=== PATIENT | male | born 1945 | race African-American/Black ===

== ENCOUNTER 2017-02-08 21:20 | Inpatient (IN) ==
[2017-02-08] MEDS ORDERED: SODIUM CHLORIDE 0.9% 1,700 ML IV ONE (21:37)
[2017-02-08 22:01] LABS: Basophils % 0.1 % (0.0-0.8); Hematocrit 31.3 VOL% (42.0-52.0); Hemoglobin 9.7 GM/DL (14.0-18.0); Immature Granulocytes % 0.5 %; Immature Granulocytes Absolute 0.06 #; Lymphocytes # 0.5 10*3/uL (1.4-4.0); Mean Corpuscular Hemoglobin 24 PG (27-34); Mean Corpuscular Volume 78.3 FL (87-102); Mean Platelet Volume 9.9 FL (9.6-12.0); Monocytes # 0.7 10*3/uL (0.11-0.8); Monocytes % 5.5 % (1.7-12.7); Neutrophils # 10.6 10*3/uL (1.4-7.4); Neutrophils % 89.9 % (38.7-73.9); Platelet Count 222 T/CUMM (130-400); Red Cell Distribution Width 17.5 % (9.3-17.3); White Blood Count 11.8 T/CUMM (4-12)
--- NOTE | 2017-02-08 22:06 | Emergency Department Note ---
Arrival - Arrival Chief Complaint: Fever Stated Complaint: Fever ED Nursing Triage Note: Patient presents from home via EMS with a complaint of fever with altered mental status. Per report patient was eating approximately 2 days ago and got choked at home. Since then patient has been with today with fever and altered mental stauts. Mode of Arrival: Stretcher Time Seen by Provider: 02/08/17 21:36 - History of Present Illness HPI Narrative: This is a 71-year-old male of descent with a history of dementia who lives at home and presents with decreasing mental status fever and cough. His says that his neck has been painful and stiff throughout the day. Allergies/Adverse Reactions: Allergies Allergy/AdvReac Type Severity Reaction Status Date / Time No Known Allergies Allergy Unverified 02/08/17 21:31 Home Medications: Home Medications Medication Instructions Recorded Confirmed Type Bimatoprost 0.01% Oph Soln 1 drop BOTH EYES DAILY 02/08/17 02/08/17 History [Lumigan] Dorzolamide HCl [Dorzolamide 2% 1 drop BOTH EYES BID 02/08/17 02/08/17 History Oph Soln] Losartan [Cozaar] 50 mg PO DAILY 02/08/17 02/08/17 History Review of System - Review of System Constitutional: Present: fever. Absent: night sweats, weakness Eyes: Absent: pain, redness Head/Ears/Nose/Throat: Absent: epistaxis, nasal drainage Respiratory: Absent: respiratory distress, wheezing Cardiovascular: Absent: dyspnea on exertion, orthopnea Gastrointestinal: Absent: diarrhea, constipation Genitourinary male: Absent: hematuria, discharge Musculoskeletal: Absent: joint swelling, lower back pain Skin: Absent: change in color, change in hair/nails Neurological: Absent: numbness, paresthesias Psychiatric: Absent: anxiety, depression Endocrine: Absent: heat intolerance, polydipsia, polyuria Hematological/Lymphatic: Absent: easy bruising, lymphadenopathy Allergic/Immunologic: Absent: urticaria, itchy eyes Medical,Surgical,& Family Hx - Medical History Cardio: History of: Hypertension - Social History Smoking Status: Never smoker Frequency of Alcohol Use: None Type of Drug Use: None Exam Vital Signs: Vital Signs Temperature 99.8 F H 02/08/17 21:36 Pulse Rate 111 H 02/08/17 21:36 Respiratory Rate 22 02/08/17 21:37 Blood Pressure 204/116 02/08/17 21:36 O2 Sat by Pulse Oximetry 97 02/08/17 21:21 - General General appearance: other (The patient is sleepy and difficult to awake. His neck is markedly stiff and tender.) - Head Head exam: Present: atraumatic, normocephalic - Eye Eye exam: Present: PERRL, EOMI - ENT ENT exam: Present: normal exam, normal oropharynx - Neck Neck exam: Present: meningismus - Chest Chest inspection: Present: normal inspection, symmetric chest wall rise - Respiratory Respiratory exam: Present: normal lung sounds bilaterally - Cardiovascular Cardiovascular exam: Present: tachycardia - Abdominal Exam Abdominal exam: Present: soft, normal bowel sounds - Extremities Exam Extremities exam: Present: normal inspection, full ROM - Back Exam Back exam: Present: normal inspection, full ROM - Neurological Exam Neurological exam: Present: other (The patient is sleepy but responds to pain) - Psychiatric Psychiatric exam: Present: normal affect, normal mood - Skin Skin exam: Present: warm, dry Results - Labs CBC & BMP: 02/08/17 21:43
[2017-02-08 22:20] LABS: Albumin 3.2 G/DL (3.4-5.0); Bilirubin,Total 0.8 MG/DL (0.2-1.0); Calcium 8.9 MG/DL (8.5-10.1); Lactic Acid 1.5 MMOL/L (0.4-2.0); Osmolality,Calculated 286.1 MOS/KG (273-304); Potassium 3.3 MMOL/L (3.5-5.1); Total Protein 8.4 G/DL (6.4-8.3)
[2017-02-08] MEDS ORDERED: PIPERACILLIN/TAZOBACTAM 4,500 MG VIAL IV ONE (22:30)
[2017-02-08] MEDS ORDERED: PIPERACILLIN/TAZOBACTAM 3,375 MG VIAL IV ONE (22:30)
[2017-02-08] MEDS ORDERED: VANCOMYCIN INJ 1,000 MG in SODIUM CHLORIDE 0.9% 250 ML IV SCH (22:30)
[2017-02-08] MEDS ORDERED: SODIUM CHLORIDE 0.9% 100 ML IV ONE (22:31)
[2017-02-08 22:54] LABS: Hypochromasia 1+; Lymphocytes 4 % (20-55); Microcytosis 1+; Platelet Estimate Normal; Polychromasia Few; Segmented Neutrophils 91 % (50-85); Total Cells Counted 100
[2017-02-08] MEDS: PIPERACILLIN/TAZOBACTAM 3,375 MG in SODIUM CHLORIDE 0.9% 100 ML IV SCH (23:05)
[2017-02-08 23:44] LABS: Appearance,CSF Clear; Red Blood Cell,CSF < 1 C/CUMM; White Blood Cell,CSF < 1 C/CUMM
[2017-02-09] MEDS ORDERED: LABETALOL 20 MG/4 ML SYRINGE IV ONE (01:39)
[2017-02-09] MEDS ORDERED: LABETALOL 20 MG/4 ML SYRINGE IV STA (01:43)
--- NOTE | 2017-02-09 02:01 | Hospitalist History & Physical ---
Assessment and Plan (1) Pneumonia Status: Acute Current Visit: Yes (2) Aortic aneurysm Status: Acute Current Visit: Yes (3) Advanced dementia Status: Acute Assessment and plan: Our plan for this patient will be admitting him to our service. I do think that he had aspiration event. I would like to have his swallowing evaluated. Think he needs some IV fluids and some medications to control his blood pressure. We will use IV medications at this point. Can continue his eyedrops. Will await recommendations on his diet. Need to follow-up on the final report some of the red scans. He will need to have his aortic aneurysm monitor closely. Reevaluate patient in the morning. Current Visit: Yes History of Present Illness Chief complaint: Warm to touch History of present illness: Mr. Whiteside is a 71 year old male with past medical history significant for PTSD, hypertension, glaucoma, hypertension, prostate cancer and advanced dementia who was brought up to the hospital today for decreased mental status and fever. Patient is on hospice. He has really advanced dementia according to his . She feeds him and assist with all of his daily needs. He was eating food yesterday and was pocketing it in his mouth. He did have a coughing spell consistent with possible aspiration. Later she noticed that he is warm to touch. So she brought him up here for further evaluation. Secondary to him having a stiff neck he got an LP by the ER physician. The results of that are negative. He was scanned chest abdomen and pelvis along with his head. The results of those scans displayed some pneumonia. His scans also displayed a inferior inferior renal aortic aneurysm that has grown. According to the V rad scan. Discussed CODE STATUS with the patient's and although he is on hospice she does want him to be a full code. Home Medications Medication Instructions Recorded Confirmed Type Bimatoprost 0.01% Oph Soln 1 drop BOTH EYES DAILY 02/08/17 02/08/17 History [Lumigan] Dorzolamide HCl [Dorzolamide 2% 1 drop BOTH EYES BID 02/08/17 02/08/17 History Oph Soln] Losartan [Cozaar] 50 mg PO DAILY 02/08/17 02/08/17 History Allergies Allergy/AdvReac Type Severity Reaction Status Date / Time No Known Allergies Allergy Unverified 02/08/17 21:31 Medical,Surgical,& Family Hx - Medical History Cardio: History of: Hypertension Neurology: History of: Dementia Other: History of: Miscellaneous Medical Problems (Prostate cancer) - Surgical History Reproductive Surgeries: Surgical HX of;: Prostate Surgery - Family History Family History: Reports;: Family Diabetes, Family Heart Disease, Family Psychiatric Problems - Social History Smoking Status: Former smoker Frequency of Alcohol Use: None Type of Drug Use: None ROS unobtainable: due to mental status Exam - Constitutional Vitals: Period Temp Pulse Resp BP Sys/Goel Pulse Ox Last 24 Hr 99.0 F-100.0 F 87-120 16-22 167-204/75-116 97-99 General appearance: under weight - Head Head exam: Present: normal inspection - Eye Pupils: Present: unequal (Patient has history of glaucoma) - ENT ENT exam: Present: normal exam - Neck Neck exam: Present: tenderness, other (Patient does have neck stiffness) - Respiratory Respiratory exam: Present: clear to auscultation bilaterally - Cardiovascular Cardiovascular exam: Present: regular rate and rhythm - GI/Abdominal GI/Abdominal exam: Present: normal bowel sounds - Extremities Exam Extremities exam: Present: normal inspection - Back Exam Back exam: Present: normal inspection - Neurological Exam Neurological exam: Present: alert, oriented X3 - Psychiatric Psychiatric exam: Present: normal affect, normal mood - Skin Skin exam: Present: normal color Results - Labs CBC & BMP: 02/08/17 21:43 02/08/17 21:43
[2017-02-09] MEDS ORDERED: ONDANSETRON 4 MG/2 ML VIAL IV PRN (02:07)
[2017-02-09] MEDS: SODIUM CHLOR 0.45% KCL 20 MEQ 20 MEQ/1,000 ML BAG IV SCH (03:24)
[2017-02-09] MEDS: LEVOFLOXACIN INJ 750 MG in PREMIX 1 EACH IV SCH (03:25)
[2017-02-09] MEDS: ENOXAPARIN 40 MG/0.4 ML SYRINGE SUBCUT SCH (03:25)
[2017-02-09] MEDS: PIPERACILLIN/TAZOBACTAM 3,375 MG in SODIUM CHLORIDE 0.9% 100 ML IV SCH ×3 (06:14→21:16)
--- NOTE | 2017-02-09 07:47 | CT Report ---
CT chest abdomen pelvis w con Indication: Sepsis. CT CHEST, ABDOMEN AND PELVIS WITH CONTRAST DLP: 681 mGy*cm. One or more of the following dose reduction techniques was used: Automated exposure control, adjustment of the mA and/or kV according the patient size, or use of iterative reconstruction techniques. Comparison: 06/30/2014 Technique: Axial CT images of the chest, abdomen and pelvis were obtained following the intravenous administration of Omnipaque 350, 100 cc. Oral contrast was not administered. Chest: Normal heart size. Tortuous elongation of the thoracic aorta with diffuse calcified atheromatous disease noted. Descending thoracic aorta is fusiform dilated, 42 mm diameter. Small focus of saccular aneurysmal dilatation of the left lateral aortic arch present as well. No dissection flap identified. Severe pulmonary emphysema is present. 11 mm soft tissue nodule superior segment left lower lobe. Vague area of alveolar consolidation base of the lingula measuring 28 x 17 mm. Pleural spaces are generally clear. No focal bone lesions. No pathologically enlarged mediastinal, hilar or axillary lymph nodes. Abdomen: Liver, gallbladder, spleen, pancreas and adrenal glands are within normal limits, although streak artifact from arm positioning and breathing motion artifact is present. 50 mm hypodensity right kidney, likely a cyst. 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 No hydronephrosis or solid mass identified. No small bowel dilatation. Scattered air-fluid levels are noted throughout the abdomen and pelvis. 45 mm abdominal aortic aneurysm is present beginning well below the lowest renal artery, previously measured at 36 mm. OLVIN is patent. Iliac arteries are widely patent. Pelvis: Urinary bladder is contracted. Rectosigmoid colon is grossly unremarkable. No free fluid, free air or lymphadenopathy identified. Patient is somewhat osteopenic with degenerative changes lumbar spine. Impression: 1. Severe pulmonary emphysema. 11 mm pulmonary nodule superior segment left lower lobe. Alveolar consolidation such as pneumonia versus pulmonary nodule at the base of the lingula, 28 x 17 mm. 2. Fusiform dilatation of the ascending thoracic aorta, 42 mm diameter. Small focus of saccular aneurysmal change developing lateral left aortic arch. Enlarging abdominal aortic aneurysm, 45 mm diameter. 3. 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 No urinary obstruction or focal mass. Renal cysts. 4. Scattered air-fluid levels throughout the abdomen and pelvis small bowel, nonspecific. PROCEDURE INTERPRETED AT [facility] DEPARTMENT OF RADIOLOGY Final Report Signed by: Anthony Goldberg M.D.
--- NOTE | 2017-02-09 07:49 | CT Report ---
CT head/brain wo con Indication: Fever. Altered mental status. CT BRAIN WITHOUT CONTRAST DLP: 1089 mGy*cm. One or more of the following dose reduction techniques was used: Automated exposure control, adjustment of the mA and/or kV according the patient size, or use of iterative reconstruction techniques. Comparison: None. Date of admission: 02/08/2017. Technique: Axial noncontrast CT images of the brain were obtained. Findings: No acute hemorrhage, mass or mass effect. Significant hypodensity of the deep white matter of both convexities noted. Cortical orozco-white junction appears maintained and the structures of the basal ganglia are well-defined. Mild generalized atrophy. Mucosal thickening of the ethmoid and right maxillary sinus is noted. No bone lesions otherwise present. Impression: 1. Significant hypodensity of the deep white matter of both convexities, presumably chronic small vessel ischemic change. Mild generalized atrophy. No acute intracranial pathology. Consider MRI. 2. Ethmoid and right maxillary sinusitis. PROCEDURE INTERPRETED AT [facility] DEPARTMENT OF RADIOLOGY Final Report Signed by: Anthony Goldberg M.D.
[2017-02-09 08:14] LABS: Basophils % 0.2 % (0.0-0.8); Hematocrit 30.3 VOL% (42.0-52.0); Hemoglobin 9.4 GM/DL (14.0-18.0); Immature Granulocytes % 0.6 %; Immature Granulocytes Absolute 0.06 #; Lymphocytes # 0.7 10*3/uL (1.4-4.0); Lymphocytes % 6.1 % (21.2-54.2); Mean Corpuscular Hemoglobin 24 PG (27-34); Mean Corpuscular Volume 77.7 FL (87-102); Mean Platelet Volume 10.5 FL (9.6-12.0); Monocytes # 0.9 10*3/uL (0.11-0.8); Neutrophils # 9.2 10*3/uL (1.4-7.4); Neutrophils % 85.1 % (38.7-73.9); Platelet Count 178 T/CUMM (130-400); Red Cell Distribution Width 18.1 % (9.3-17.3); White Blood Count 10.7 T/CUMM (4-12)
[2017-02-09 08:39] LABS: Hypochromasia Slight; Microcytosis 1+
[2017-02-09 08:47] LABS: Calcium 8.2 MG/DL (8.5-10.1); Osmolality,Calculated 289.7 MOS/KG (273-304); Potassium 3.1 MMOL/L (3.5-5.1)
[2017-02-09] MEDS ORDERED: BIMATOPROST 0.01% OPH SOLN 2.5 ML BOTTLE BOTH EYES SCH (09:00)
[2017-02-09] MEDS: DORZOLAMIDE 2% OPH SOLN 10 ML BOTTLE BOTH EYES SCH ×2 (09:42→20:56)
[2017-02-09] MEDS ORDERED: PIPERACILLIN/TAZOBACTAM 3,375 MG in SODIUM CHLORIDE 0.9% 100 ML IV SCH (10:00)
[2017-02-09] MEDS ORDERED: POTASSIUM CHLORIDE INJ 40 MEQ in SODIUM CHLORIDE 0.9% 500 ML IV SCH (12:00)
[2017-02-09] MEDS: LABETALOL 20 MG/4 ML SYRINGE IV PRN (15:47)
[2017-02-10] MEDS: LABETALOL 20 MG/4 ML SYRINGE IV PRN ×4 (00:52→20:12)
[2017-02-10] MEDS: PIPERACILLIN/TAZOBACTAM 3,375 MG in SODIUM CHLORIDE 0.9% 100 ML IV SCH ×3 (04:31→20:27)
[2017-02-10 07:29] LABS: Basophils % 0.2 % (0.0-0.8); Eosinophils % 0.6 % (0.00-10.9); Hemoglobin 8.8 GM/DL (14.0-18.0); Immature Granulocytes % 0.5 %; Immature Granulocytes Absolute 0.03 #; Lymphocytes # 0.5 10*3/uL (1.4-4.0); Lymphocytes % 8.6 % (21.2-54.2); Mean Corpuscular HGB Conc 30.3 GM/DL (32-36); Mean Corpuscular Hemoglobin 24 PG (27-34); Mean Corpuscular Volume 78.4 FL (87-102); Mean Platelet Volume 10.2 FL (9.6-12.0); Monocytes # 0.7 10*3/uL (0.11-0.8); Monocytes % 10.5 % (1.7-12.7); Neutrophils % 79.6 % (38.7-73.9); Platelet Count 164 T/CUMM (130-400); Red Cell Distribution Width 17.9 % (9.3-17.3); White Blood Count 6.3 T/CUMM (4-12)
[2017-02-10 07:53] LABS: Calcium 8.8 MG/DL (8.5-10.1); Magnesium 2.1 MG/DL (1.8-2.4); Osmolality,Calculated 291.4 MOS/KG (273-304); Potassium 3.3 MMOL/L (3.5-5.1)
[2017-02-10] MEDS: LEVOFLOXACIN INJ 750 MG in PREMIX 1 EACH IV SCH (09:14)
[2017-02-10] MEDS: DORZOLAMIDE 2% OPH SOLN 10 ML BOTTLE BOTH EYES SCH ×2 (09:15→21:20)
[2017-02-10] MEDS: ENOXAPARIN 40 MG/0.4 ML SYRINGE SUBCUT SCH (09:21)
[2017-02-10] MEDS: LOSARTAN 50 MG TABLET PO SCH (10:07)
[2017-02-10] MEDS: SODIUM CHLOR 0.45% KCL 20 MEQ 20 MEQ/1,000 ML BAG IV SCH ×2 (11:36→12:17)
--- NOTE | 2017-02-10 15:07 | Hospitalist Progress Note ---
Assessment and Plan (1) Pneumonia Status: Acute Assessment and plan: Continue abx Current Visit: Yes (2) Advanced dementia Status: Acute Current Visit: Yes Hospitalist: Subjective Interval history: No acute events overnight. Patient denies pain. His reports a little po intake. Exam - Constitutional Vitals: Period Temp Pulse Resp BP Sys/Goel Pulse Ox Last 24 Hr 96.0 F-97.3 F 67-81 18-26 154-195/88-117 94-99 General appearance: under weight - Head Head exam: Present: normocephalic, atraumatic - Eye Eye exam: Present: EOMI Pupils: Present: TIMOTEO - ENT ENT exam: Present: normal exam - Neck Neck exam: Present: normal inspection - Respiratory Respiratory exam: Present: clear to auscultation bilaterally. Absent: wheezes - Cardiovascular Cardiovascular exam: Present: regular rate and rhythm - GI/Abdominal GI/Abdominal exam: Present: normal bowel sounds, soft. Absent: tenderness, rebound - Extremities Exam Extremities exam: Present: normal inspection - Back Exam Back exam: Present: normal inspection - Neurological Exam Neurological exam: Present: alert, oriented X3 - Psychiatric Psychiatric exam: Present: normal affect, normal mood - Skin Skin exam: Present: warm, intact Results - Labs CBC & BMP: 02/10/17 06:46 02/10/17 06:46
[2017-02-10] MEDS: DEXTROSE 5% NACL 0.45% 1,000 ML IV SCH (16:26)
[2017-02-10] MEDS: POTASSIUM CHLORIDE 20 MEQ TABLET PO PRN ×4 (17:01→22:59)
[2017-02-10] MEDS: BIMATOPROST 0.01% OPH SOLN 2.5 ML BOTTLE BOTH EYES SCH (21:20)
[2017-02-11] MEDS: LABETALOL 20 MG/4 ML SYRINGE IV PRN ×3 (01:34→06:01)
[2017-02-11] MEDS: PIPERACILLIN/TAZOBACTAM 3,375 MG in SODIUM CHLORIDE 0.9% 100 ML IV SCH ×2 (05:06→12:40)
[2017-02-11 06:22] LABS: Basophils % 0.2 % (0.0-0.8); Eosinophils # 0.1 10*3/uL (0.0-0.87); Eosinophils % 1.7 % (0.00-10.9); Hematocrit 31.3 VOL% (42.0-52.0); Hemoglobin 9.5 GM/DL (14.0-18.0); Immature Granulocytes % 0.2 %; Immature Granulocytes Absolute 0.01 #; Lymphocytes # 0.5 10*3/uL (1.4-4.0); Lymphocytes % 12.3 % (21.2-54.2); Mean Corpuscular HGB Conc 30.4 GM/DL (32-36); Mean Corpuscular Hemoglobin 24 PG (27-34); Mean Corpuscular Volume 79.2 FL (87-102); Mean Platelet Volume 9.7 FL (9.6-12.0); Monocytes # 0.5 10*3/uL (0.11-0.8); Monocytes % 11.6 % (1.7-12.7); Neutrophils # 3.1 10*3/uL (1.4-7.4); Platelet Count 166 T/CUMM (130-400); Red Blood Count 3.95 MC/CUMM (3.8-5.5); Red Cell Distribution Width 17.6 % (9.3-17.3); White Blood Count 4.2 T/CUMM (4-12)
[2017-02-11 06:43] LABS: Calcium 9.1 MG/DL (8.5-10.1); Magnesium 2.1 MG/DL (1.8-2.4); Osmolality,Calculated 282.8 MOS/KG (273-304); Potassium 3.6 MMOL/L (3.5-5.1)
[2017-02-11] MEDS: LOSARTAN 50 MG TABLET PO SCH (09:30)
[2017-02-11] MEDS: ENOXAPARIN 40 MG/0.4 ML SYRINGE SUBCUT SCH (09:32)
[2017-02-11] MEDS: DORZOLAMIDE 2% OPH SOLN 10 ML BOTTLE BOTH EYES SCH ×2 (09:34→22:04)
[2017-02-11] MEDS: LEVOFLOXACIN INJ 750 MG in PREMIX 1 EACH IV SCH (09:36)
--- NOTE | 2017-02-11 15:36 | Hospitalist Progress Note ---
Assessment and Plan (1) Pneumonia Status: Acute Assessment and plan: Continue abx, changed to augemtin Current Visit: Yes (2) Advanced dementia Status: Acute Current Visit: Yes Hospitalist: Subjective Interval history: No acute events overnight. Patient interacting some. His family member reports that he is still not eating much. Speech consult noted, diet changed to soft. Exam - Constitutional Vitals: Period Temp Pulse Resp BP Sys/Goel Pulse Ox Last 24 Hr 96.3 F-98.2 F 71-76 18-22 140-201/91-116 94-100 General appearance: under weight - Head Head exam: Present: normocephalic, atraumatic - Eye Eye exam: Present: EOMI Pupils: Present: TIMOTEO - ENT ENT exam: Present: normal exam - Neck Neck exam: Present: normal inspection - Respiratory Respiratory exam: Present: clear to auscultation bilaterally. Absent: rhonchi, wheezes - Cardiovascular Cardiovascular exam: Present: regular rate and rhythm - GI/Abdominal GI/Abdominal exam: Present: normal bowel sounds, soft. Absent: tenderness, rebound - Extremities Exam Extremities exam: Present: normal inspection - Back Exam Back exam: Present: normal inspection - Neurological Exam Neurological exam: Present: alert, oriented X3 - Psychiatric Psychiatric exam: Present: normal affect, normal mood - Skin Skin exam: Present: warm, intact Results - Labs CBC & BMP: 02/11/17 05:05 02/11/17 05:05
[2017-02-11] MEDS: POTASSIUM CHLORIDE 20 MEQ TABLET PO PRN ×2 (16:43→18:45)
[2017-02-11] MEDS: CARVEDILOL 6.25 MG TABLET PO SCH (22:02)
[2017-02-11] MEDS: AMOXICILLIN 875 MG TABLET PO SCH (22:02)
[2017-02-11] MEDS: BIMATOPROST 0.01% OPH SOLN 2.5 ML BOTTLE BOTH EYES SCH (22:05)
[2017-02-11] MEDS: DEXTROSE 5% NACL 0.45% 1,000 ML IV SCH (22:06)
[2017-02-12] MEDS: LABETALOL 20 MG/4 ML SYRINGE IV PRN ×3 (00:02→08:57)
[2017-02-12] MEDS: DEXTROSE 5% NACL 0.45% 1,000 ML IV SCH ×2 (08:25→11:46)
[2017-02-12] MEDS: ENOXAPARIN 40 MG/0.4 ML SYRINGE SUBCUT SCH (08:53)
[2017-02-12] MEDS ORDERED: hydrALAZINE 10 MG TABLET PO SCH (09:00)
[2017-02-12] MEDS: DORZOLAMIDE 2% OPH SOLN 10 ML BOTTLE BOTH EYES SCH ×2 (09:30→21:12)
--- NOTE | 2017-02-12 09:47 | CT Report ---
CT head/brain wo con Indication: Altered mental status. CT BRAIN WITHOUT CONTRAST DLP: 915 mGy*cm. One or more of the following dose reduction techniques was used: Automated exposure control, adjustment of the mA and/or kV according the patient size, or use of iterative reconstruction techniques. Comparison: 02/08/2017. Date of admission: 02/12/2017. Technique: Axial noncontrast CT images of the brain were obtained. Findings: No acute hemorrhage, mass or mass effect. Brain volume is normal. There is significant patchy periventricular white matter hypodensity present throughout both convexities, stable from the prior exam. Cortical orozco-white junction and structures of the basal ganglia are well-defined. No bone lesions are shown. Internal auditory canals are symmetric. Mucosal thickening of the ethmoid air cells is present and mild. The remainder of visualized sinuses and mastoid air cells are clear. Impression: No acute intracranial pathology. Changes consistent with significant but stable microvascular disease. Ethmoid sinus disease. PROCEDURE INTERPRETED AT [facility] DEPARTMENT OF RADIOLOGY Final Report Signed by: Anthony Goldberg M.D.
[2017-02-12] MEDS: CARVEDILOL 6.25 MG TABLET PO SCH (11:13)
[2017-02-12] MEDS: LOSARTAN 50 MG TABLET PO SCH (11:14)
[2017-02-12 11:15] LABS: Basophils % 0.1 % (0.0-0.8); Hematocrit 31.1 VOL% (42.0-52.0); Hemoglobin 9.7 GM/DL (14.0-18.0); Immature Granulocytes % 0.7 %; Immature Granulocytes Absolute 0.05 #; Lymphocytes # 0.5 10*3/uL (1.4-4.0); Lymphocytes % 6.9 % (21.2-54.2); Mean Corpuscular HGB Conc 31.2 GM/DL (32-36); Mean Corpuscular Hemoglobin 24 PG (27-34); Mean Corpuscular Volume 77.6 FL (87-102); Mean Platelet Volume 11.1 FL (9.6-12.0); Monocytes # 0.4 10*3/uL (0.11-0.8); Monocytes % 5.8 % (1.7-12.7); Neutrophils % 86.5 % (38.7-73.9); Platelet Count 129 T/CUMM (130-400); Red Blood Count 4.01 MC/CUMM (3.8-5.5); Red Cell Distribution Width 17.5 % (9.3-17.3); White Blood Count 6.9 T/CUMM (4-12)
[2017-02-12] MEDS: hydrALAZINE 20 MG/1 ML VIAL IV SCH ×2 (11:40→17:09)
[2017-02-12 11:41] LABS: Calcium 9.2 MG/DL (8.5-10.1); Osmolality,Calculated 272.7 MOS/KG (273-304); Potassium 3.7 MMOL/L (3.5-5.1)
[2017-02-12] MEDS: AMOXICILLIN 875 MG TABLET PO SCH (11:46)
--- NOTE | 2017-02-12 12:22 | Hospitalist Progress Note ---
Assessment and Plan (1) Pneumonia Status: Acute Assessment and plan: Possibly secondary to aspiration Will change back to zosyn, since not tolerating po Current Visit: Yes (2) Advanced dementia Status: Acute Current Visit: Yes (3) Hypertension Status: Acute Assessment and plan: Family member reports that at home systolic usually ~150s Will schedule IV hydralazine with IV labetalol prn Current Visit: Yes (4) Encephalopathy Status: Acute Assessment and plan: Patient with dementia at baseline But has a change in his mental status since yesterday, now completely unresponsive CT head without acute process Labs unremarkable Will order MRI brain Will also consult neurology Current Visit: Yes Hospitalist: Subjective Interval history: Overnight patient's family member notes upper extremity jerking movements. Following this episode she notes a change in his mental status. He is unresponsive this morning. He will usually respond to simple questions. He is no longer able to take his po medications. His blood pressure has been elevated , now not taking his po blood pressure medications. CT head this morning without acute process. Exam - Constitutional Vitals: Period Temp Pulse Resp BP Sys/Goel Pulse Ox Last 24 Hr 96.7 F-98.4 F 70-87 16-20 163-208/96-118 94-98 General appearance: under weight - Head Head exam: Present: normocephalic, atraumatic - Eye Eye exam: Present: EOMI Pupils: Present: TIMOTEO - ENT ENT exam: Present: normal exam - Neck Neck exam: Present: normal inspection - Respiratory Respiratory exam: Present: clear to auscultation bilaterally - Cardiovascular Cardiovascular exam: Present: regular rate and rhythm - GI/Abdominal GI/Abdominal exam: Present: normal bowel sounds, soft. Absent: tenderness, rebound - Extremities Exam Extremities exam: Present: normal inspection - Back Exam Back exam: Present: normal inspection - Neurological Exam Neurological exam: Present: other (unresponsive) - Psychiatric Psychiatric exam: Absent: agitated, anxious - Skin Skin exam: Present: warm, intact Results - Labs CBC & BMP: 02/12/17 10:43 02/12/17 10:43
--- NOTE | 2017-02-12 12:48 | Neurology Consult Note ---
History of Present Illness History of present illness: Mr. Whiteside is a 71 year old -English gentleman with past medical history significant for PTSD, hypertension, glaucoma, hypertension, prostate cancer and advanced dementia who was admitted to the hospital today for decreased mental status and fever. Patient is on hospice. He has really advanced dementia according to his and is pretty much bedridden. She feeds him and assist with all of his daily needs. He was eating food at home and was pocketing it in his mouth. He did have a coughing spell consistent with possible aspiration. Later she noticed that he is warm to touch. So she brought him up here for further evaluation. Secondary to him having a stiff neck he got an LP by the ER physician. The results of that are negative. He was scanned chest abdomen and pelvis along with his head. The results of those scans displayed some pneumonia. His scans also displayed a inferior inferior renal aortic aneurysm that has grown. Patient is on antibiotic. Yesterday he had an episode where he shook a little bit and it was thought that he might had a small seizure Home Medications Medication Instructions Recorded Confirmed Type Bimatoprost 0.01% Oph Soln 1 drop BOTH EYES DAILY 02/08/17 02/09/17 History [Lumigan] Dorzolamide HCl [Dorzolamide 2% 1 drop BOTH EYES BID 02/08/17 02/09/17 History Oph Soln] Losartan [Cozaar] 50 mg PO DAILY 02/08/17 02/09/17 History Allergies Allergy/AdvReac Type Severity Reaction Status Date / Time No Known Allergies Allergy Unverified 02/08/17 21:31 ROS unobtainable: due to mental status Medical,Surgical,& Family Hx - Medical History Cardio: History of: Hypertension Comment Only: Cardiovascular Problems ("enlarged aorta") Neurology: History of: Dementia HEENT: History of: Glaucoma Comment Only: HEENT Problems (Hx sinus surgery, mass removed in 2014) Respiratory: History of: COPD Gastrointestinal: History of: Diverticulitis/ Diverticulosis, GERD, Polyps ( Removed) Other: History of: Cancer (hx of Prostate CA, with removal, chemo,and radiation) , Miscellaneous Medical Problems (Prostate cancer) - Surgical History Reproductive Surgeries: Surgical HX of;: Prostate Surgery (removed in 2001 due to CA) - Family History Family History: Reports;: Family Diabetes, Family Heart Disease, Family Psychiatric Problems - Social History Smoking Status: Former smoker Frequency of Alcohol Use: None Type of Drug Use: None Exam - Constitutional Vitals: Period Temp Pulse Resp BP Sys/Goel Pulse Ox Last 24 Hr 96.7 F-98.4 F 70-87 16-20 163-208/96-118 94-98 Exam: GENERAL: Patient is in no acute distress. NECK: Neck is stiff likely because of arthritis. There is no JVD. No carotid bruits present. No thyroid masses. CVS: First and second heart sounds are normal. There is no S3 present. Regular rate and rhythm. RESPIRATORY: Lungs are clear to auscultation without any rales or rhonchi. ABDOMEN: Soft and non-tender. Bowel sounds are present. There is no hepatosplenomegaly. EXT: There is no palpable edema. Peripheral pulses are present. Skin: No rashes Central Nervous system: General: Keeping his eyes closed Speech: None Comprehension: Impaired Facial expressions: Normal Cranial Nerves: Pupils are sluggish but reactive. Doll's head eye movements are positive Motor: Strength cannot be assessed Sensory: Cannot be assessed Reflexes: 1+ and symmetrical Cerebellar function: Cannot be assessed Toes: Equivocal Gait: Cannot be assessed Results - Labs CBC & BMP: 02/12/17 10:43 02/12/17 10:43 Assessment and Plan (1) Advanced dementia Status: Acute Assessment and plan: No treatment indicated at this time I have discussed at length with the patient's . We will cancel MRI because it would not change the outcome Add a baby aspirin Current Visit: Yes (2) Encephalopathy Status: Acute Assessment and plan: This is likely due to decompensated Alzheimer's disease as well as pneumonia Current Visit: Yes (3) New onset seizure Status: Acute Assessment and plan: This could very well be due to dementia Start Dilantin 100 mg IV every 8 Thank you for the consult Current Visit: Yes
[2017-02-12] MEDS: PIPERACILLIN/TAZOBACTAM 3,375 MG in SODIUM CHLORIDE 0.9% 100 ML IV SCH ×2 (13:15→21:09)
[2017-02-12] MEDS: PHENYTOIN 100 MG/2 ML VIAL IV SCH ×2 (13:49→21:07)
[2017-02-12] MEDS: BIMATOPROST 0.01% OPH SOLN 2.5 ML BOTTLE BOTH EYES SCH (21:12)
[2017-02-13] MEDS: hydrALAZINE 20 MG/1 ML VIAL IV SCH ×5 (00:54→23:47)
[2017-02-13] MEDS: DEXTROSE 5% NACL 0.45% 1,000 ML IV SCH ×3 (00:55→18:43)
[2017-02-13 05:54] LABS: Hematocrit 44.5 VOL% (42.0-52.0); Hemoglobin 13.8 GM/DL (14.0-18.0); Immature Granulocytes % 0.5 %; Immature Granulocytes Absolute 0.03 #; Lymphocytes # 0.6 10*3/uL (1.4-4.0); Lymphocytes % 9.6 % (21.2-54.2); Mean Corpuscular Hemoglobin 24 PG (27-34); Mean Corpuscular Volume 77.5 FL (87-102); Mean Platelet Volume 9.9 FL (9.6-12.0); Monocytes # 0.4 10*3/uL (0.11-0.8); Monocytes % 6.7 % (1.7-12.7); Neutrophils # 4.7 10*3/uL (1.4-7.4); Neutrophils % 83.2 % (38.7-73.9); Platelet Count 133 T/CUMM (130-400); Red Blood Count 5.74 MC/CUMM (3.8-5.5); White Blood Count 5.7 T/CUMM (4-12)
[2017-02-13 05:59] LABS: Calcium 8.7 MG/DL (8.5-10.1); Magnesium 1.9 MG/DL (1.8-2.4); Osmolality,Calculated 278.4 MOS/KG (273-304); Potassium 3.1 MMOL/L (3.5-5.1)
[2017-02-13] MEDS: PHENYTOIN 100 MG/2 ML VIAL IV SCH ×3 (06:06→22:33)
[2017-02-13] MEDS: PIPERACILLIN/TAZOBACTAM 3,375 MG in SODIUM CHLORIDE 0.9% 100 ML IV SCH ×3 (06:07→22:34)
[2017-02-13] MEDS: ENOXAPARIN 40 MG/0.4 ML SYRINGE SUBCUT SCH (08:34)
[2017-02-13] MEDS: DORZOLAMIDE 2% OPH SOLN 10 ML BOTTLE BOTH EYES SCH ×2 (08:34→21:35)
[2017-02-13] MEDS: ASPIRIN EC 81 MG TABLET PO SCH (08:36)
--- NOTE | 2017-02-13 13:54 | Hospitalist Progress Note ---
Assessment and Plan (1) Pneumonia Status: Acute Assessment and plan: Possibly secondary to aspiration Continue zosyn Current Visit: Yes (2) Advanced dementia Status: Acute Current Visit: Yes (3) Hypertension Status: Acute Assessment and plan: Family member reports that at home systolic usually ~150s Will schedule IV hydralazine with IV labetalol prn Current Visit: Yes (4) Encephalopathy Status: Acute Assessment and plan: Patient with dementia at baseline But has a change in his mental status since yesterday, now completely unresponsive CT head without acute process Labs unremarkable Neurology assisting MRI cancellled Started on dilantin Current Visit: Yes Hospitalist: Subjective Interval history: No acute events overnight. Patient's family member reports that he has been more awake but is still not responsive. No more reports of jerking movements. Long discussion with patient's today about his code status. She says that she will talk to his other family members. Exam - Constitutional Vitals: Period Temp Pulse Resp BP Sys/Goel Pulse Ox Last 24 Hr 96.6 F-98.1 F 87-99 18-21 122-192/74-96 94-97 General appearance: under weight - Head Head exam: Present: normocephalic, atraumatic - Eye Eye exam: Present: EOMI Pupils: Present: TIMOTEO - ENT ENT exam: Present: normal exam - Neck Neck exam: Present: normal inspection - Respiratory Respiratory exam: Present: clear to auscultation bilaterally. Absent: wheezes - Cardiovascular Cardiovascular exam: Present: regular rate and rhythm - GI/Abdominal GI/Abdominal exam: Present: normal bowel sounds, soft. Absent: tenderness, rebound - Extremities Exam Extremities exam: Present: normal inspection - Back Exam Back exam: Present: normal inspection - Neurological Exam Neurological exam: Present: alert, oriented X3 - Psychiatric Psychiatric exam: Present: normal affect, normal mood - Skin Skin exam: Present: warm, intact Results - Labs CBC & BMP: 02/13/17 05:07 02/13/17 05:07
[2017-02-13] MEDS: BIMATOPROST 0.01% OPH SOLN 2.5 ML BOTTLE BOTH EYES SCH (21:36)
[2017-02-14] MEDS: POTASSIUM CHLORIDE RIDER 10 MEQ in PREMIX 1 EACH IV PRN ×4 (02:43→05:42)
[2017-02-14 06:09] LABS: Basophils % 0.1 % (0.0-0.8); Eosinophils % 0.1 % (0.00-10.9); Hematocrit 29.2 VOL% (42.0-52.0); Hemoglobin 9.2 GM/DL (14.0-18.0); Immature Granulocytes % 0.8 %; Immature Granulocytes Absolute 0.06 #; Lymphocytes # 0.6 10*3/uL (1.4-4.0); Mean Corpuscular HGB Conc 31.5 GM/DL (32-36); Mean Corpuscular Hemoglobin 24 PG (27-34); Mean Corpuscular Volume 75.8 FL (87-102); Mean Platelet Volume 9.8 FL (9.6-12.0); Monocytes # 0.8 10*3/uL (0.11-0.8); Monocytes % 10.9 % (1.7-12.7); Neutrophils # 6.1 10*3/uL (1.4-7.4); Neutrophils % 80.1 % (38.7-73.9); Platelet Count 210 T/CUMM (130-400); Red Blood Count 3.85 MC/CUMM (3.8-5.5); Red Cell Distribution Width 18.1 % (9.3-17.3); White Blood Count 7.6 T/CUMM (4-12)
[2017-02-14] MEDS: PHENYTOIN 100 MG/2 ML VIAL IV SCH (06:28)
[2017-02-14] MEDS: hydrALAZINE 20 MG/1 ML VIAL IV SCH ×2 (06:32→09:48)
[2017-02-14 06:38] LABS: Magnesium 2.1 MG/DL (1.8-2.4); Osmolality,Calculated 282.1 MOS/KG (273-304); Potassium 3.3 MMOL/L (3.5-5.1)
[2017-02-14] MEDS: PIPERACILLIN/TAZOBACTAM 3,375 MG in SODIUM CHLORIDE 0.9% 100 ML IV SCH (07:02)
--- NOTE | 2017-02-14 09:05 | Discharge Summary ---
<Patricia Mcknight - Last Filed: 02/14/17 08:48> Hospital Course - Hospital Course Hospital Course: This is a 71-year-old male that presented to the ED at [facility] on the morning of February 09, 2017 for the evaluation of altered mental status and fever. The patient has a medical history significant for hypertension, glaucoma, prostate cancer, advanced dementia, posttraumatic stress disorder. Patient has a surgical history significant for prostatectomy. Due to the patient's gross alteration in his mental status, the was present at bedside and served as historian. The reported that the patient was currently on the hospice benefit due to advanced dementia. She reported that the patient requires total care. She also reported that she noted on the day prior to presentation that during a meal that the patient was pocketing food in his mouth. Upon discovery, she reported that the patient had a severe coughing spell that she thought was possible aspiration. Later on that day, she noticed that the patient had a change in his body temperature. This prompted her to present to the ED with the patient for further evaluation. The patient was seen and assessed at the time of ED presentation. The reported that the patient was experiencing some stiffness of his neck prompting a lumbar puncture in the ED; which was essentially negative. Labs were unremarkable. CT head and brain without contrast was significant for hypodensity of the deep white matter of both convexities presumably chronic small vessel ischemic change, mild generalized atrophy, no acute intracranial pathology, and ethmoid and right maxillary sinusitis. CT abdomen and pelvis reported severe pulmonary emphysema, 11 mm pulmonary nodule superior segment left lower lobe, alveolar consolidation such as pneumonia versus pulmonary nodule at the base of the lingula with measurements noted at 287 mm. Fusiform dilation of the ascending thoracic aorta 42 mm in diameter, small focus area of saccular aneurysmal change developing at the lateral left aortic arch, enlarging abdominal aortic aneurysm noted at 45 mm diameter. 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 Scattered air- fluid levels were noted throughout the abdomen, pelvis, and small bowel are nonspecific. Empiric antibiotic coverage and gentle rehydration was initiated at the time of admission. Due to the suspicion of aspiration, a speech therapy consultation was requested. The patient was seen and evaluated by speech therapy, he was started on a soft mechanical diet. On the night of February 11, his family member was present at bedside and reported that the patient had some uncontrolled upper extremity jerking movements and immediately noticed changes in the patient 's mental status. A CT head was immediately ordered which was essentially unremarkable for any acute intracranial cranial infarct or processes. A neurology consultation was requested. The patient was started on a anti-seizure medication a response to the new onset of seizures; however neurology declined further evaluation via MRI due to the patient's current overall poor prognosis. The patient's condition slightly improved. The patient has been more awake however has failed to be completely responsive. After discussion with patient's , she has decided to take the patient home under her care along with home hospice. - Time spent with patient Time with patient DS: Greater than 30 minutes Discharge Plan - Discharge Data Disposition: Disch To Home/Self Care - Discharge Medications Continue Bimatoprost 0.01% Oph Soln [Lumigan] 1 drop BOTH EYES DAILY Losartan [Cozaar] 50 mg PO DAILY Dorzolamide HCl [Dorzolamide 2% Oph Soln] 1 drop BOTH EYES BID - Follow Up or Referral - Forms/Instructions Exam - Constitutional Vitals: Period Temp Pulse Resp BP Sys/Goel Pulse Ox Last 24 Hr 96.9 F-98.8 F 88-105 16-22 129-166/70-95 94-98 Discharge Results Procedures and tests throughout hospitalization: Pending Orders 02/08/17 Blood Culture Stat Herpes Simplex Virus,PCR,CSF Stat 02/14/17 09:00 Potassium Stat Labs on day of discharge: Labs from last 24 hours 02/14/17 02/14/17 05:19 05:19 WBC 7.6 D RBC 3.85 D Hgb 9.2 L D Hct 29.2 L MCV 75.8 L MCH 24 L MCHC 31.5 L RDW 18.1 H Plt Count 210 D MPV 9.8 Neut % (Auto) 80.1 H Lymph % (Auto) 8.0 L [place] % (Auto) 10.9 Eos % (Auto) 0.1 Baso % (Auto) 0.1 Neut # (Auto) 6.1 Lymph # (Auto) 0.6 L [place] # (Auto) 0.8 Eos # (Auto) 0.0 Baso # (Auto) 0.0 Immature Gran % 0.8 Nucleated RBC % 0.0 Immature Gran # 0.06 Nucleated RBCs # 0.00 Immature Plt Fraction 0.0 Sodium 142 Potassium 3.3 L Chloride 111 H Carbon Dioxide 20 L Anion Gap 14.3 BUN 13 Creatinine 1.00 GFR Calculation 92 BUN/Creatinine Ratio 13.00 Glucose 97 Calculated Osmolality 282.1 Calcium 9.0 Magnesium 2.1 Preliminary micro results at discharge 02/08/17 Unknown Blood Culture - Preliminary Blood No growth at 3 days 02/08/17 Unknown Blood Culture - Preliminary Blood No growth at 3 days DS: Provider Date of admission: 02/09/17 02:08 Primary care physician: . Jazmin PCP Attending physician on admission: Anthony Mccoy MD Consults: 02/09/17 03:30 Consult to Dietitian [CONS] Routine Reason for Dietitian: Diet Recommendations Supplements and/or Snacks 02/12/17 11:06 Consult to Physician [CONS] Routine Comment: jerking movements overnight per ,now ams Consulting Provider: Mohit Ma Person Notified: dr. saravia Date Notified: 02/12/17 Time Notified: 12:19 Discharging clinician: Patricia Mcknight CNP <Maco Banda - Last Filed: 02/14/17 09:27> Hospital Course - Time spent with patient Time with patient DS: Greater than 30 minutes (35) Diagnosis - Discharge Diagnosis (1) Pneumonia Status: Resolved (2) Advanced dementia Status: Chronic (3) Hypertension Status: Chronic (4) Encephalopathy Status: Chronic Discharge Plan - Discharge Data Condition at Discharge: Guarded Discharge Diet: advance to your usual diet Exam - Constitutional General appearance: under weight - Head Head exam: Present: normocephalic, atraumatic - Eye Eye exam: Present: EOMI Pupils: Present: TIMOTEO - ENT ENT exam: Present: normal exam - Neck Neck exam: Present: normal inspection - Respiratory Respiratory exam: Present: clear to auscultation bilaterally - Cardiovascular Cardiovascular exam: Present: regular rate and rhythm - GI/Abdominal GI/Abdominal exam: Present: normal bowel sounds, soft - Extremities Exam Extremities exam: Present: normal inspection - Back Exam Back exam: Present: normal inspection - Neurological Exam Neurological exam: Present: alert - Psychiatric Psychiatric exam: Absent: agitated, anxious - Skin Skin exam: Present: warm, intact
[2017-02-14] MEDS: DEXTROSE 5% NACL 0.45% 1,000 ML IV SCH (09:47)
[2017-02-14] MEDS: ENOXAPARIN 40 MG/0.4 ML SYRINGE SUBCUT SCH (09:48)
[2017-02-14] MEDS: ASPIRIN EC 81 MG TABLET PO SCH (09:48)
[2017-02-14] MEDS: DORZOLAMIDE 2% OPH SOLN 10 ML BOTTLE BOTH EYES SCH (09:48)
[2017-02-14 11:31] VITALS: BP 159/88
--- NOTE | 2017-02-21 09:50 | Physician Query Form ---
CLICK EDIT DOCUMENT TO SELECT QUERY ANSWER --> OK --> SIGN Pushpa Denny RN, CCDS Certified Clinical Casket Liner W) [phone] (f) [phone] [email or web address] PROVIDERS: Make your selection(s) from the choices in EACH section by typing an "x" and enter comments in the comment section. Please use your independent medical judgment in providing your response. This request does not imply that any particular answer is desired or expected. CLINICAL INDICATORS: (Providers should not edit this section) "Empiric antibiotic coverage and gentle rehydration was initiated at the time of admission. Due to the suspicion of aspiration, a speech therapy consultation was requested. The patient was seen and evaluated by speech therapy , he was started on a soft mechanical diet" Community Acquired and Healthcare Acquired are both unspecified terms and require further specificity. Based on the above, could you please clarify further specificity regarding the type of pneumonia you are treating (even if specific organism may not be known) ? ( x) Aspiration pneumonia ( ) Gram negative pneumonia ( ) Gram positive pneumonia ( ) Bacterial pneumonia due to, please specify organism (if known): ( ) Pneumonia with Influenza ( ) Viral pneumonia ( ) Post procedural ( ) HIV associated pneumonia ( ) Radiation Pneumonitis ( ) Pneumonia due to, please specify: ( ) Clinically unable to determine ( ) Other, please specify: COMMENTS: PLEASE ALSO DOCUMENT RESPONSE IN PROGRESS NOTES AND/OR DISCHARGE SUMMARY Use of terms such as suspected, likely, or probable (associated with a specific diagnosis that is being evaluated, monitored, or treated as if it exists) are acceptable and can be restated in the discharge summary if not ruled out. MTDD
== END 2017-02-14 11:45 | disposition hospice, home (50) | DRG 177 ==
LOC: EDBD → EDUNIT# → N.ED 21:20 → SUATTDRO 02-09 02:07 → N.EDINP 02-09 02:07 → N.2E 02-09 02:35
PROVIDERS: ADMIT Internal Medicine; ATTEND Internal Medicine